=== PATIENT | female | born 1975 | race Caucasian/White ===

== ENCOUNTER 2017-03-27 14:00 | Emergency (ER) | payer OTHER ==
--- NOTE | ~2017-03-27 | EKG ---
PATIENT: TAI KHAN UNIT #: [id number] Ventricular Rate: 87 BPM Atrial Rate: 87 BPM P-R Interval: 156 ms QRS Duration: 84 ms Q-T Interval: 372 ms QTC Calculation(Bezet): 447 ms P Planada: 55 degrees Calculated R Planada: 63 degrees Calculated T Planada: 68 degrees Diagnosis Line: Normal sinus rhythm Diagnosis Line: Normal ECG Diagnosis Line: When compared with ECG of 10-OCT-2013 12:51, Diagnosis Line: No significant change was found Diagnosis Line: Confirmed by SANDEEP WALKER MD ([id number]) on Diagnosis Line: 03/27/2017 4:40:47 PM INTERPRETING MD: DENISE RODRIGUEZ
--- NOTE | ~2017-03-27 | CR72 ---
[facility] A Service of [facility] & [facility] RADIOLOGY TEXT RESULTS PATIENT: TAI KHAN LOCATION: [facility] : 79 UNIT #: [id number] AGE: [address]: Sahil Sam MD SEX: F ORDER DR: [id number] [facility] [address] [place], [place] [address] [id number] MR#: [id number] Acc #: [id number] NAME: TAI KHAN : 1975 SEX: F STUDY DATE/TIME: 03/27/2017 13:39 UNIT: [facility] ROOM: STUDY DESCRIPTION: CR Chest Single View Portable Attending Physician: Sahil Sam M.D. Referring Physician: No Primary Care Physician Ordering Physician: Sahil Sam M.D. Primary Care Physician: No Primary Care Physician MEDICAL IMAGING REPORT This report is preliminary unless electronic signature is present EXAM Portable chest x-ray 03/27/2017 HISTORY Syncope. History of seizures. Smoker. Syncope, short of air today. FINDINGS AP radiograph of chest is presented. Comparison 11/14/2015. Configuration of the posterolateral left sixth rib fracture raises possibility of old healed fracture. There is no indication of acute bony abnormality. The heart and mediastinum are normal in size and contour. The lungs are well inflated without evidence of acute pulmonary disease, pleural effusion or pneumothorax. No suspicious nodule. Stable appearance of small linear scar right upper lung zone. No suspicious nodule. Dictated by... Sandro Gray M.D. THIS IS AN ELECTRONICALLY VERIFIED REPORT Sandro Gray M.D. at 03/28/2017 6:26 PM JESSICA/gurpreet TD: 03/27/2017 15:09 JOB #: [id number] MEDICAL IMAGING REPORT Page 1 of 1 COPY
--- NOTE | ~2017-03-27 | CT71 ---
[facility] A Service of [facility] & [facility] RADIOLOGY TEXT RESULTS PATIENT: TAI KHAN LOCATION: [facility] : 79 UNIT #: [id number] AGE: [address]: Sahil Sam MD SEX: F ORDER DR: [id number] [facility] [address] [place], [place] [address] [id number] MR#: [id number] Acc #: [id number] NAME: TAI KHAN : 1975 SEX: F STUDY DATE/TIME: 03/27/2017 15:06 UNIT: [facility] ROOM: STUDY DESCRIPTION: CT Head Wo Contrast Attending Physician: Sahil Sam M.D. Referring Physician: No Primary Care Physician Ordering Physician: Sahil Sam M.D. Primary Care Physician: No Primary Care Physician MEDICAL IMAGING REPORT This report is preliminary unless electronic signature is present EXAM CT of the head without contrast, dated 03/27/2017. COMPARISON None. HISTORY Syncope and dizziness for 4-5 days. Patient fell four times in the last 5 days. History of seizures and MRSA. TECHNIQUE This CT exam was performed with one or more of the following radiation dose reduction techniques: automatic exposure control, adjustment of mA and/or kV according to patient size, and iterative reconstruction. FINDINGS CT of the head was obtained without contrast in the axial plane as per the protocol. Axial noncontrast images were obtained from the skull base to the vertex. Ventricular size and configuration are normal. There is no evidence of acute infarct or hemorrhage. There are no extra-axial fluid collections. No mass lesion or mass effect is seen. There are no skull fractures. Nasal septum is deviated to the left. Mild paranasal sinus mucosal thickening is seen in the left maxillary, bilateral ethmoid sinuses and severe in the right sphenoid sinus with air fluid level. IMPRESSION 1. No demonstrable acute intracranial abnormality. 2. Moderate right sphenoid sinus mucosal thickening is noted with air-fluid levels suggestive of dyujr-fa-frtweat sinusitis depending on the clinical presentation. There is also mild paranasal sinus mucosal thickening in some of the other sinuses with mild nasal septal deviation to the left. STS. [facility] A Service of [facility] & [facility] RADIOLOGY TEXT RESULTS PATIENT: TAI KHAN LOCATION: [facility] : 79 UNIT #: [id number] AGE: [address]: Sahil Sam MD SEX: F ORDER DR: Dictated by... Betty Ortiz M.D. THIS IS AN ELECTRONICALLY VERIFIED REPORT eBtty Ortiz M.D. at 03/29/2017 3:11 PM CPR/jt TD: 03/27/2017 16:42 JOB #: [id number] MEDICAL IMAGING REPORT Page 1 of 1 COPY
[2017-03-27 13:41] LABS: URINE SOURCE CLEAN CATCH
[2017-03-27 13:45] LABS: URINE APPEARANCE CLEAR; URINE BILIRUBIN NEG (NEG); URINE BLOOD NEG (NEG); URINE COLOR YELLOW; URINE GLUCOSE NEG (NEG); URINE KETONE NEG (NEG); URINE LEUKOCYTE ESTERASE TRACE (NEG); URINE NITRATE NEG (NEG); URINE PROTEIN NEG (NEG); URINE SPECIFIC GRAVITY 1.007 (1.003-1.035)
[2017-03-27 13:47] LABS: BASOPHIL% 0.5 % (0-2.5); EOSINOPHIL# 0.1 X10e3 (0-0.7); EOSINOPHIL% 1.1 % (0.0-7.0); HEMATOCRIT 41.2 % (35.0-45.0); HEMOGLOBIN 13.9 gm/dL (12.0-16.0); LYMPHOCYTE# 1.6 X10e3 (1.0-3.5); LYMPHOCYTE% 32.2 % (17.0-45.0); MEAN CORPUSCULAR HEMOGLOBIN 30.4 PG (28-34); MEAN CORPUSCULAR HGB CONC 33.7 g/dL (30-36); MEAN PLATELET VOLUME 9.6 FL (6.5-11.5); MONOCYTE# 0.3 X10e3 (0-1.0); MONOCYTE% 5.5 % (3.0-12.0); NEUTROPHIL% 60.7 % (40-75); PLATELET COUNT 219 X10e3 (140-420); RED BLOOD COUNT 4.57 X10e (3.90-5.30); RED CELL DISTRIBUTION WIDTH 12.7 % (11.0-15.5)
[2017-03-27 13:48] LABS: CULTURE INDICATED? YES; URINE BACTERIA AUWI 4+ (NEGATIVE); URINE SQUAMOUS EPITHELIAL CELL OCC /[HPF]
[2017-03-27 13:51] LABS: DIFF IND NO
[2017-03-27 13:58] LABS: PROTHROMBIN TIME (PATIENT) 10.7 SECONDS (9.6-11.5)
[2017-03-27 14:09] LABS: ALBUMIN SERUM 4.6 g/dL (3.5-5.0); BILIRUBIN, DIRECT 0.2 mg/dL (0.0-0.2); BILIRUBIN,INDIRECT 1.3 mg/dL (0.0-0.9); BILIRUBIN,TOTAL 1.5 mg/dL (0.2-2.0); BUN/CREATININE RATIO 16.25; CALCIUM SERUM 9.1 mg/dL (8.4-10.2); CREATININE SERUM 0.8 mg/dL (0.6-1.4); POTASSIUM 3.8 mmol/L (3.5-5.1); PROTEIN TOTAL SERUM 8.4 g/dL (6.0-8.3)
== END 2017-03-27 17:35 | disposition home or self-care (01) ==
LOC: CED 14:00
PROVIDERS: Emergency Medicine
DX: R55 Syncope and collapse (principal); N39.0 Urinary tract infection, site not specified; G40.909 Epilepsy, unspecified, not intractable, without status epilepticus
CPT/HCPCS: 36415; 70450; 71010; 80048; 80076; 81003; 82947; 84703; 85025; 85610; 87086; 87088; 87186; 93005; 96361; 96374; 99284; J1885